=== PATIENT | male | born 1970 | race Caucasian/White ===

== ENCOUNTER 2016-09-18 14:36 | Outpatient (CLI) | payer OTHER ==
[2016-09-18 14:53] LABS: BASOPHILS % 0.5 (0.0-1.5); EOSINOPHILS % 1.9 % (0.0-6.8); MEAN CORPUSCULAR VOLUME 85.5 fl (80.0-100.0); MONOCYTES % 4.7 % (0.0-11.0); NEUTROPHILS # 7.1 # k/uL (1.4-7.7)
[2016-09-18 15:18] LABS: eGFR (African) > 60; eGFR (Non-African) > 60
--- NOTE | 2016-09-18 18:49 | Diagnostic Imaging Report ---
LOULOU ESPANA [facility] [id number] [facility] [address] [place], [place]. [address] Report Submission Date: Sep 18, 2016 3:23:45 PM CDT Patient Study Name: DIONISIO COLUNGA Date: Sep 18, 2016 2:45:51 PM CDT Modality Type: CR Gender: M Description: ABDOMEN : 72 Institution: [facility] Physician: LOULOU ESPANA Examination: Obstruction series History: Abdominal discomfort Findings: 3 views obtained of the abdomen. No abnormal dilation of the large or small bowel. Air and stool throughout the large bowel. 2 mm calcification projecting over the lateral margin of the left kidney. 3 mm right lower pelvic calcification: Presumed phlebolith. Osseous structures are appropriate for age. Impression: No ileus or obstruction. Left renal and right lower pelvic calcifications. If there is a concern for nephron or ureterolithiasis - consider obtaining dedicated CT examination. Electronically signed on Sep 18, 2016 3:23:45 PM CDT by: Malachi MONTIEL
== END 2016-09-18 14:37 ==
LOC: LAB 14:36
PROVIDERS: ATTEND Family Medicine
DX: R53.83 Other fatigue (principal); R10.84 Generalized abdominal pain
CPT/HCPCS: 36415; 74000; 80053; 83036; 85025

== ENCOUNTER 2016-10-28 15:02 | Outpatient (CLI) | payer OTHER ==
--- NOTE | 2016-10-28 15:42 | Diagnostic Imaging Report ---
LOULOU ESPANA [facility] [address] [facility] [address] [address] Report Submission Date: Oct 28, 2016 3:39:15 PM CDT Patient Study Name: DIONISIO COLUNGA Date: Oct 28, 2016 3:17:59 PM CDT Modality Type: CR Gender: M Description: LOWER EXTREMITY : 72 Institution: [facility] Physician: LOULOU ESPANA Examination: Plain film foot History: Discomfort Findings: 3 views of the foot demonstrates normal cortical margins. No fracture or dislocation. Mild articular degenerative changes. No soft tissue swelling. No joint effusion. Impression: Early articular degenerative changes. No acute osseous process. Electronically signed on Oct 28, 2016 3:39:15 PM CDT by: Malachi MONTIEL
== END 2016-10-28 15:03 ==
LOC: RAD 15:02
PROVIDERS: ATTEND Family Medicine
DX: M79.672 Pain in left foot (principal)
CPT/HCPCS: 36415; 73630; 84550